=== PATIENT | female | born 1975 | race Caucasian/White ===

== ENCOUNTER 2020-02-20 11:23 | Emergency (ER) | payer OTHER ==
--- NOTE | 2020-02-20 11:41 | ED.PDOC ---
History of Present Illness - General Chief Complaint: Upper Extremity Injury Stated Complaint: right hand pain Time Seen by Provider: 02/20/20 11:25 Source: patient, RN notes reviewed, Vital Signs reviewed Exam Limitations: no limitations - History of Present Illness Initial Comments: 44 yo RHD female tripped on her [id number] oxygen cord and fell forward onto her right hand. FOOSh type injury. Did not hit head, no other injuries. complains of hand and wirst pain. no numbness or tingling. Allergies/Adverse Reactions: Allergies Carbamazepine [From Tegretol] Allergy (Verified 02/20/20 11:34) Home Medications: Ambulatory Orders Lisdexamfetamine Dimesylate [Vyvanse] 70 mg PO DAILY 02/20/20 Venlafaxine HCl [Effexor Tab] 150 mg PO DAILY 02/20/20 Review of Systems - Review of Systems Constitutional: Denies: chills, fever EENTM: Denies: blurred vision, double vision Respiratory: Denies: short of breath Cardiology: Denies: chest pain Gastrointestinal/Abdominal: Denies: abdominal pain Genitourinary: Denies: dysuria Musculoskeletal: States: joint pain, joint swelling, muscle pain. Denies: back pain, neck pain Skin: Denies: rash Neurological: Denies: numbness, paresthesia, weakness Endocrine: Denies: unexplained weight loss Hematologic/Lymphatic: Denies: easy bruising Past Medical History (General) - Patient Medical History Hx Stroke: No Hx Congestive Heart Failure: No Hx Diabetes: No - Vaccination History Hx Influenza Vaccination: Yes - Social History Hx Tobacco Use: No Family Medical History - Family History Mother Family History: Unknown Living Status: Unknown Physical Exam - Physical Exam General Appearance: Alert, Comfortable, No apparent distress, Well Developed, Well Groomed, Well Hydrated, Well Nourished Eyes, Ears, Nose, Throat Exam: normal ENT inspection Neck: non-tender, supple, normal inspection Cardiovascular/Respiratory: regular rate, rhythm, no M/R/G, normal peripheral pulses, no respiratory distress Abdominal Exam: non-tender Back Exam: normal inspection, no vertebral tenderness Shoulder Exam: normal inspection, non-tender, no evidence of injury Elbow/Forearm Exam: normal inspection, non-tender, no evidence of injury Wrist Exam: no evidence of injury, soft tissue tenderness Hand Exam: no evidence of injury, soft tissue tenderness Neuro/Tendon: normal sensation, normal motor functions, normal tendon functions, responds to pain Mental Status: alert, oriented x 3 Skin Exam: normal color, warm/dry Comments: Symmetrically palpable radial and ulnar pulses. Capillary refill <2 seconds to all digits. Intact sensation to light touch of the radial, median and ulnar nerves Intact motor function of the radial, median and ulnar nerves demonstrated by strength of extension of the isolated distal joint of the index finger, hand polish maker, and spreading of the 2nd through 5th digits. Intact recurrent median nerve as demonstrated by ability to move thumb fully through opposition, abduction and flexion. No snuffbox tenderness. Progress - Results/Orders Results/Orders: The data reviewed when caring for this patient included: nurse notes, prior records, etc. The history and assessments from nurses notes were reviewed and considered, and the patient's home medication list was also reviewed and considered. My assessment and the results of testing completed here in the ED were discussed with the patient/family. All questions were answered, and they express understanding of my assessment and the plan. They have been instructed to return if their symptoms worsen, and have been asked to follow up with their primary care physician to recheck today's presenting complaint. return precautions given. Estrella Butterfield DO #[id number] - EKG/XRAY/CT XRAY: hand - and wirst xray show no acute fracture Departure - Departure Clinical Impression: Sprain and strain of hand, Hand sprain and strain Time of Disposition: 12:22 Disposition: Discharge to Home or Self Care Departure Forms: ED Discharge - Pt. Copy, Patient Portal Self Enrollment Instructions: DI for Arm Pain, Wrist Sprain (DC) Diet: resume usual diet Activity: increase activity as tolerated Home Medications: Ambulatory Orders Lisdexamfetamine Dimesylate [Vyvanse] 70 mg PO DAILY 02/20/20 Venlafaxine HCl [Effexor Tab] 150 mg PO DAILY 02/20/20 Additional Instructions: ibuprofen 600 mg every 6 hours with food or milk as needed for pain.
[2020-02-20] MEDS ORDERED: HYDROcodone 5MG/APAP 325MG 1 EA TAB PO ONE (11:46)
--- NOTE | 2020-02-20 12:17 | RAD ---
EXAM DESCRIPTION: Hand,Right 3 Views (accession [id number]), Wrist,Right 3 Views (accession [id number]) RadLex: XR HAND 3 OR MORE VIEWS, XR WRIST 3 OR MORE VIEWS Views: 3 CLINICAL HISTORY: fall; COMPARISON: None. FINDINGS: Three-view x-ray right wrist: The osseous structures all appear intact.. The joint spaces are well-preserved. There is no evidence for bony erosion or destruction. The soft tissues are normal. There is no foreign body. Three-view x-ray right hand: The osseous structures all appear intact. The growth plates and soft tissues are normal. IMPRESSION: 1. Normal x-ray of the wrist and hand. Electronically signed by: Getachew Diaz MD 02/20/2020 12:15 PM [facility]
--- NOTE | 2020-02-20 12:17 | RAD ---
EXAM DESCRIPTION: Hand,Right 3 Views (accession [id number]), Wrist,Right 3 Views (accession [id number]) RadLex: XR HAND 3 OR MORE VIEWS, XR WRIST 3 OR MORE VIEWS Views: 3 CLINICAL HISTORY: fall; COMPARISON: None. FINDINGS: Three-view x-ray right wrist: The osseous structures all appear intact.. The joint spaces are well-preserved. There is no evidence for bony erosion or destruction. The soft tissues are normal. There is no foreign body. Three-view x-ray right hand: The osseous structures all appear intact. The growth plates and soft tissues are normal. IMPRESSION: 1. Normal x-ray of the wrist and hand. Electronically signed by: Getachew Diaz MD 02/20/2020 12:15 PM [facility]
[2020-02-20 12:41] VITALS: BP 123/81; TEMP 97.7; O2SAT 97
== END 2020-02-20 12:29 | disposition home or self-care (01) ==
LOC: ER 11:23
DX: S63.91XA Sprain of unspecified part of right wrist and hand, initial encounter (principal); Z88.8 Allergy status to other drugs, medicaments and biological substances; W01.0XXA Fall on same level from slipping, tripping and stumbling without subsequent striking against object, initial encounter; Y92.9 Unspecified place or not applicable

== ENCOUNTER 2020-03-16 19:04 | Emergency (ER) | payer OTHER ==
--- NOTE | 2020-03-16 20:34 | ED.PDOC ---
History of Present Illness - General Chief Complaint: General Stated Complaint: Fever Loss of taste and smell Time Seen by Provider: 03/16/20 19:33 Source: patient, RN notes reviewed, Vital Signs reviewed Exam Limitations: no limitations - History of Present Illness Initial Comments: Patient is a 44-year-old white female who complains of fever, loss of smell and taste and generalized malaise and fatigue for the last 24 hours. Patient was exposed to Covid a few days ago. Symptoms are moderate in intensity. Fever is subjective. Patient also complains of chills. Timing/Duration: 24 hours, getting worse Severity: moderate Improving Factors: nothing Worsening Factors: nothing Associated Symptoms: fever/chills, malaise Allergies/Adverse Reactions: Allergies Carbamazepine [From Tegretol] Allergy (Verified 02/20/20 11:34) Home Medications: Ambulatory Orders Lisdexamfetamine Dimesylate [Vyvanse] 70 mg PO DAILY 02/20/20 Venlafaxine HCl [Effexor Tab] 150 mg PO DAILY 02/20/20 Review of Systems - Review of Systems Constitutional: States: see HPI, chills, fever. Denies: malaise, weakness EENTM: States: no symptoms reported. Denies: eye pain, blurred vision, double vision Respiratory: States: no symptoms reported. Denies: cough, short of breath, stridor, wheezing Cardiology: States: no symptoms reported. Denies: chest pain, palpitations, syncope Gastrointestinal/Abdominal: States: no symptoms reported. Denies: abdominal pain, diarrhea, nausea, vomiting Genitourinary: States: no symptoms reported. Denies: dysuria, frequency Musculoskeletal: States: joint pain. Denies: back pain, joint swelling, neck pain Skin: States: no symptoms reported. Denies: change in color, rash Neurological: States: no symptoms reported. Denies: headache, tingling, tremors, weakness Endocrine: States: no symptoms reported. Denies: increased hunger, increased thirst, increased urine Hematologic/Lymphatic: States: no symptoms reported. Denies: blood clots, easy bleeding All other Systems: Reviewed and Negative Past Medical History (General) - Patient Medical History Hx Seizures: No Hx Stroke: No Hx Dementia: No Hx Asthma: Yes Hx of COPD: No Hx Cardiac Disorders: No Hx Congestive Heart Failure: No Hx Pacemaker: No Hx Hypertension: No Hx Thyroid Disease: No Hx Diabetes: No Hx Gastroesophageal Reflux: No Hx Renal Disease: No Hx Cancer: No Hx of HIV: No Hx Hepatitis C: No Hx MRSA: No Surgical History: appendectomy - Vaccination History Hx Tetanus, Diphtheria Vaccination: No Hx Influenza Vaccination: No Hx Pneumococcal Vaccination: No Immunizations Up to Date: No - Social History Hx Tobacco Use: No Hx Chewing Tobacco Use: No Hx Alcohol Use: Yes Hx Substance Use: No Hx Substance Use Treatment: No Hx Depression: No Feels Threatened In Home Enviroment: No Feels Threatened In a Relationship: No Hx Physical Abuse: No Hx Emotional Abuse: No Hx Suspected Abuse: No - Female History Patient is a Female of Child Bearing Age (10 -59 yrs old): Yes Patient : No Family Medical History - Family History Mother Family History: No Known Living Status: Unknown Physical Exam - Physical Exam General Appearance: Alert, Anxious, Well Developed, Well Groomed, Well Hydrated, Well Nourished Eye Exam: bilateral normal Ears, Nose, Throat: hearing grossly normal, normal ENT inspection, normal pharynx - except dry MM. Neck: non-tender, full range of motion, supple Respiratory: chest non-tender, lungs clear, normal breath sounds, no respiratory distress, no accessory muscle use Cardiovascular/Chest: normal peripheral pulses, no edema, no gallop, no JVD, no murmur, tachycardia Peripheral Pulses: radial,right: 2+, radial,left: 2+ Gastrointestinal/Abdominal: normal bowel sounds, non tender, soft Back Exam: normal inspection, no CVA tenderness, no vertebral tenderness Extremity: normal range of motion, non-tender, normal inspection Neurologic: logger all round II-XII nml as tested, no motor/sensory deficits, alert, normal mood/affect, oriented x 3 Skin Exam: normal color, warm/dry Lymphatic: no adenopathy Progress - Progress Progress: Differential diagnosis: Influenza, Covid, strep, viral upper respiratory tract infection among others. 03/16/20 21:33 Patient is negative for rapid Covid and strep. I have obtained samples for a Covid PCR and respiratory panel. These are pending and will not be back for few hours. Plan on discharge home at this time and will follow up with patient regarding her test results. I discussed the plan of care with the patient she voices understanding and agreement. Eyad Benitez M.D. #[id number] - Results/Orders Results/Orders: 03/16/20 20:21 RESPIRATORY PANEL 2 Stat STREP A SCREEN CULTURE Stat Laboratory Results - last 24 hr 03/16/20 20:21 Group A Strep Rapid Negative Rapid Covid: Negative Respiratory to panel: Pending Vital Signs 03/16/20 03/16/20 03/16/20 19:16 19:17 20:05 Temperature 97.8 F Pulse Rate [ 118 H 106 H Pulse Ox] Respiratory 16 16 18 Rate Blood Pressure 129/98 135/87 [Left Arm] O2 Sat by Pulse 99 98 Oximetry 03/16/20 21:00 Temperature Pulse Rate [ 107 H Pulse Ox] Respiratory 16 Rate Blood Pressure 118/80 [Left Arm] O2 Sat by Pulse 99 Oximetry Departure - Departure Clinical Impression: Viral illness Time of Disposition: 21:34 Disposition: Discharge to Home or Self Care Condition: Good Departure Forms: ED Discharge - Pt. Copy, Patient Portal Self Enrollment Diet: resume usual diet Activity: increase activity as tolerated Referrals: Carlos Alberto Vega MD [Active Staff] - 1-5 Days Home Medications: Ambulatory Orders Lisdexamfetamine Dimesylate [Vyvanse] 70 mg PO DAILY 02/20/20 Venlafaxine HCl [Effexor Tab] 150 mg PO DAILY 02/20/20
[2020-03-16 21:27] VITALS: O2SAT 99
[2020-03-16 22:03] VITALS: BP 128/88; TEMP 97.2
== END 2020-03-16 21:44 | disposition home or self-care (01) ==
LOC: ER 19:04
DX: B34.9 Viral infection, unspecified (principal); Z20.822 Contact with and (suspected) exposure to COVID-19; J45.909 Unspecified asthma, uncomplicated; Z79.899 Other long term (current) drug therapy; Z88.8 Allergy status to other drugs, medicaments and biological substances